=== PATIENT | male | born 1960 | race Caucasian/White ===

== ENCOUNTER 2025-02-22 13:43 | Outpatient (CLI) | payer OTHER | END 2025-02-22 13:44 | disposition home or self-care (01) | LOC: CSHWCC 13:43 | PROVIDERS: ATTEND Nurse Practitioner Family | DX: I87.331 Chronic venous hypertension (idiopathic) with ulcer and inflammation of right lower extremity (principal); L97.211 Non-pressure chronic ulcer of right calf limited to breakdown of skin; I87.2 Venous insufficiency (chronic) (peripheral); L08.9 Local infection of the skin and subcutaneous tissue, unspecified | CPT/HCPCS: 11042; 99212; G0463 ==

== ENCOUNTER 2025-03-01 13:47 | Outpatient (CLI) | payer OTHER | END 2025-03-01 13:48 | disposition home or self-care (01) | LOC: CSHWCC 13:47 | PROVIDERS: ATTEND Nurse Practitioner Family | DX: I87.331 Chronic venous hypertension (idiopathic) with ulcer and inflammation of right lower extremity (principal); L97.211 Non-pressure chronic ulcer of right calf limited to breakdown of skin; I87.2 Venous insufficiency (chronic) (peripheral) ==

== ENCOUNTER 2025-04-05 14:43 | Outpatient (CLI) | payer OTHER | END 2025-04-05 14:44 | disposition home or self-care (01) | LOC: CSHWCC 14:43 | PROVIDERS: ATTEND Nurse Practitioner Family | DX: I87.331 Chronic venous hypertension (idiopathic) with ulcer and inflammation of right lower extremity (principal); L97.211 Non-pressure chronic ulcer of right calf limited to breakdown of skin; I87.2 Venous insufficiency (chronic) (peripheral) | CPT/HCPCS: 11042 ==

== ENCOUNTER 2025-04-12 10:30 | Outpatient (CLI) | payer OTHER | END 2025-04-12 10:31 | disposition home or self-care (01) | LOC: CSHWCC 10:30 | PROVIDERS: ATTEND Nurse Practitioner Family | DX: I87.331 Chronic venous hypertension (idiopathic) with ulcer and inflammation of right lower extremity (principal); L97.211 Non-pressure chronic ulcer of right calf limited to breakdown of skin; I87.2 Venous insufficiency (chronic) (peripheral) | CPT/HCPCS: 11042 ==

== ENCOUNTER 2025-04-19 14:42 | Outpatient (CLI) | payer OTHER | END 2025-04-19 14:43 | disposition home or self-care (01) | LOC: CSHWCC 14:42 | PROVIDERS: ATTEND Nurse Practitioner Family | DX: I87.331 Chronic venous hypertension (idiopathic) with ulcer and inflammation of right lower extremity (principal); L97.211 Non-pressure chronic ulcer of right calf limited to breakdown of skin; I87.2 Venous insufficiency (chronic) (peripheral) | CPT/HCPCS: 11042 ==

== ENCOUNTER 2025-04-26 14:25 | Outpatient (CLI) | payer OTHER | END 2025-04-26 14:26 | disposition home or self-care (01) | LOC: CSHWCC 14:25 | PROVIDERS: ATTEND Nurse Practitioner Family | DX: I87.331 Chronic venous hypertension (idiopathic) with ulcer and inflammation of right lower extremity (principal); L97.211 Non-pressure chronic ulcer of right calf limited to breakdown of skin; I87.2 Venous insufficiency (chronic) (peripheral) | CPT/HCPCS: 11042 ==

== ENCOUNTER 2025-05-03 14:36 | Outpatient (CLI) | payer OTHER | END 2025-05-03 14:37 | disposition home or self-care (01) | LOC: CSHWCC 14:36 | PROVIDERS: ATTEND Nurse Practitioner Family | DX: I87.331 Chronic venous hypertension (idiopathic) with ulcer and inflammation of right lower extremity (principal); L97.211 Non-pressure chronic ulcer of right calf limited to breakdown of skin; I87.2 Venous insufficiency (chronic) (peripheral) | CPT/HCPCS: 11042 ==

== ENCOUNTER 2025-05-09 14:21 | Outpatient (CLI) | payer OTHER | END 2025-05-09 14:22 | disposition home or self-care (01) | LOC: CSHWCC 14:21 | PROVIDERS: ATTEND Nurse Practitioner Family | DX: I87.331 Chronic venous hypertension (idiopathic) with ulcer and inflammation of right lower extremity (principal); L97.211 Non-pressure chronic ulcer of right calf limited to breakdown of skin; I87.2 Venous insufficiency (chronic) (peripheral) | CPT/HCPCS: 11042 ==

== ENCOUNTER 2025-05-28 09:27 | Outpatient (CLI) | payer OTHER | END 2025-05-28 09:28 | disposition home or self-care (01) | LOC: CSHWCC 09:27 | PROVIDERS: ATTEND Nurse Practitioner Family | DX: I87.331 Chronic venous hypertension (idiopathic) with ulcer and inflammation of right lower extremity (principal); L97.211 Non-pressure chronic ulcer of right calf limited to breakdown of skin; I87.2 Venous insufficiency (chronic) (peripheral) | CPT/HCPCS: 11042 ==

== ENCOUNTER 2025-06-04 14:33 | Outpatient (CLI) | payer OTHER | END 2025-06-04 14:34 | disposition home or self-care (01) | LOC: CSHWCC 14:33 | PROVIDERS: ATTEND Nurse Practitioner Family | DX: I87.331 Chronic venous hypertension (idiopathic) with ulcer and inflammation of right lower extremity (principal); L97.211 Non-pressure chronic ulcer of right calf limited to breakdown of skin; I87.2 Venous insufficiency (chronic) (peripheral) | CPT/HCPCS: 11042 ==

== ENCOUNTER 2025-06-13 14:59 | Outpatient (CLI) | payer OTHER | END 2025-06-13 15:00 | disposition home or self-care (01) | LOC: CSHWCC 14:59 | PROVIDERS: ATTEND Nurse Practitioner Family | DX: I87.331 Chronic venous hypertension (idiopathic) with ulcer and inflammation of right lower extremity (principal); L97.211 Non-pressure chronic ulcer of right calf limited to breakdown of skin; I87.2 Venous insufficiency (chronic) (peripheral) | CPT/HCPCS: 11042; 11045; 99213; G0463 ==

== ENCOUNTER 2025-07-02 14:44 | Outpatient (CLI) | payer OTHER | END 2025-07-02 14:45 | disposition home or self-care (01) | LOC: CSHWCC 14:44 | PROVIDERS: ATTEND Nurse Practitioner Family | DX: I87.331 Chronic venous hypertension (idiopathic) with ulcer and inflammation of right lower extremity (principal); L97.211 Non-pressure chronic ulcer of right calf limited to breakdown of skin; I87.2 Venous insufficiency (chronic) (peripheral); L08.9 Local infection of the skin and subcutaneous tissue, unspecified | CPT/HCPCS: 11042; 99213; G0463 ==